=== PATIENT | female | born 1960 | race African-American/Black ===

== ENCOUNTER 2017-01-13 16:50 | Emergency (ER) | payer MEDICARE, OTHER ==
[~2017-01-13] VITALS: Ht 149.9 cm; Wt 72.6 kg
--- NOTE | ~2017-01-13 | CR151 ---
[facility] A Service of [facility] & [facility] / [facility] RADIOLOGY TEXT RESULTS PATIENT: RADHA BRASHER LOCATION: CFTX : 56 UNIT #: [id number] AGE: [address]: Benita Harper SEX: F ORDER DR: [id number] [facility] [address] [place], [place] [address] [id number] E MR#: [id number] Acc #: [id number] NAME: RADHA BRASHER. : 1960 SEX: F STUDY DATE/TIME: 01/13/2017 17:51 UNIT: [facility] ROOM: STUDY DESCRIPTION: CR Hip Min 2 Views Rt Attending Physician: Benita Harper P.A.-C. Ordering Physician: Benita Harper P.A.-C. Primary Care Physician: Luca Sparks Sr., M.D. MEDICAL IMAGING REPORT This report is preliminary unless electronic signature is present EXAM Right hip and pelvis. HISTORY Low back pain. right hip pain onset today. No known injury. FINDINGS AP pelvis and frog lateral view of the right hip demonstrates no fracture deformity. No lytic or blastic lesions. Facet arthropathy seen in the lower lumbar spine. Soft tissues are unremarkable. Dictated by... Gali Goodrich M.D. THIS IS AN ELECTRONICALLY VERIFIED REPORT Gali Goodrich M.D. at 01/14/2017 2:05 PM HEBER/connie TD: 01/13/2017 21:11 JOB #: [id number] MEDICAL IMAGING REPORT Page 1 of 1 COPY
--- NOTE | ~2017-01-13 | CR181 ---
[facility] A Service of [facility] & [facility] RADIOLOGY TEXT RESULTS PATIENT: RADHA BRASHER LOCATION: CFTX : 56 UNIT #: [id number] AGE: [address]: Benita Harper SEX: F ORDER DR: [id number] [facility] [address] [place], [place] [address] [id number] E MR#: [id number] Acc #: [id number] NAME: RADHA BRASHER. : 1960 SEX: F STUDY DATE/TIME: 01/13/2017 17:47 UNIT: [facility] ROOM: STUDY DESCRIPTION: CR Lumbar Spine 2 or 3 Views Attending Physician: Benita Harper P.A.-C. Ordering Physician: Benita Harper P.A.-C. Primary Care Physician: Luca Sparks Sr., M.D. MEDICAL IMAGING REPORT This report is preliminary unless electronic signature is present EXAM Lumbar spine, 3 views. HISTORY Low back pain, right hip pain radiating down right leg onset today. No known injury. FINDINGS AP, lateral, and coned down lateral views of the lumbar spine demonstrates a grade 1 spondylolisthesis L4 and L5, most likely on the basis of underlying facet disease. No definite pars defects. No fractures. No lytic or blastic lesions. There is L4-5 disc space narrowing. Visualized SI joints unremarkable. The soft tissues appear normal. IMPRESSION L4-5 degenerative disc disease with a grade 1 spondylolisthesis L4 and L5 with probable bilateral L4-5 facet arthropathy. Dictated by... Gali Goodrich M.D. THIS IS AN ELECTRONICALLY VERIFIED REPORT Gali Goodrich M.D. at 01/14/2017 2:05 PM HEBER/connie TD: 01/13/2017 21:08 JOB #: [id number] MEDICAL IMAGING REPORT Page 1 of 1 COPY
[~2017-01-13 16:50] MED LIST: ALBUTEROL17 GM INH; ATACAND PO; CALAN PO; DOXYCYCLINE150 MG PO; HYDRALAZINE HCL50 MG PO; LASIX PO; MEDROL4 MG/DOSE- PO; NICODERM C1 PATCH .3 TD; NORVASC2.5 MG PO; PEPCID PO; PREDNISONE PO; ZITHROMAX1 G/PKT PO
== END 2017-01-13 18:47 | disposition home or self-care (01) ==
LOC: CED 16:50 → CFTX 16:50
DX: M43.16 Spondylolisthesis, lumbar region (principal); M25.551 Pain in right hip; I10 Essential (primary) hypertension; J44.9 Chronic obstructive pulmonary disease, unspecified; F17.210 Nicotine dependence, cigarettes, uncomplicated; Z88.6 Allergy status to analgesic agent
CPT/HCPCS: 72100; 73502; 99283